=== PATIENT | male | born 1960 | race Caucasian/White ===

== ENCOUNTER 2024-08-03 06:57 | Inpatient (IN) | payer BC ==
[2024-07-25 14:09] LABS: BASOPHILS # (AUTO) 0.1 (0.0-0.1); EOSINOPHILS # (AUTO) 0.3 (0.0-0.4); EOSINOPHILS % 4.3 % (0.0-6.0); HEMATOCRIT 45.9 % (38.2-49.6); HEMOGLOBIN 14.9 g/dL (14.0-18.0); LYMPHOCYTES # (AUTO) 1.5 (1.0-3.2); LYMPHOCYTES % 23.7 % (18.0-39.1); MEAN CORPUSCULAR HEMOGLOBIN 29.9 pg (28-32); MEAN CORPUSCULAR HGB CONC 32.5 g/dL (31-35); MONOCYTES # (AUTO) 0.9 (0.2-0.8); NEUTROPHILS # (AUTO) 3.6 (2.1-6.9); NEUTROPHILS % 56.7 % (38.7-80.0); PLATELET COUNT 211 x10e3/uL (140-360); RED BLOOD COUNT 4.99 x10e6/uL (4.3-5.7); RED CELL DISTRIBUTION WIDTH 13.5 % (11.7-14.4); WHITE BLOOD COUNT 6.29 x10e3/uL (4.8-10.8)
[2024-07-25 14:42] LABS: ANION GAP 14.6 mmol/L (8-16); CALCIUM 9.3 mg/dL (8.4-10.2); CREATININE, SERUM 0.94 mg/dL (0.72-1.25); POTASSIUM 4.6 mmol/L (3.5-5.1)
[~2024-08-03] VITALS: Ht 177.8 cm; Wt 90.3 kg
[~2024-08-03 06:57] MED LIST: CARVEDILOL12.5 MG PO; LOSARTAN POTASS25 MG PO; REPATHA SY140 MG/1 M IM; ZETIA10 MG PO
[2024-08-03] MEDS: CEFAZOLIN SODIUM 2 GM ONE (07:28)
[2024-08-03] MEDS: LACTATED RINGER'S 1,000 ML ONE (07:28)
[2024-08-03] MEDS ORDERED: FENTANYL CITRATE/PF 100MCG/2 ML INJ ONE ×2 (08:25→09:52)
[2024-08-03] MEDS ORDERED: LIDOCAINE HCL 2% LOCAL INJ 5 ML SDV VIAL INJ ONE (08:25)
[2024-08-03] MEDS ORDERED: PROPOFOL IV EMULSION 10 MG/ML 20 ML VIAL ONE ×2 (08:25→10:16)
[2024-08-03] MEDS ORDERED: SODIUM CHLORIDE 0.9% 100 ML ONE (09:35)
[2024-08-03] MEDS ORDERED: ACETAMINOPHEN 1000 MG/100 ML 100 ML IV ONE (09:35)
[2024-08-03] MEDS ORDERED: DEXAMETHASONE SOD PHOS INJ 4 MG/ML SDV ONE (09:59)
[2024-08-03] MEDS ORDERED: ONDANSETRON HCL INJ 2MG/ML 2ML 2 MG/ML VIAL ONE (09:59)
[2024-08-03] MEDS ORDERED: SEVOFLURANE INHAL SOLN 250 ML PEN BTL ONE (10:00)
[2024-08-03] MEDS ORDERED: MIDAZOLAM HCL 2 MG/2 ML VIAL ONE (10:11)
[2024-08-03] MEDS: FENTANYL CITRATE/PF 100MCG/2 ML INJ ONE (11:01)
[2024-08-03 12:00] VITALS: BP 139/93; PULSE 77; RESP 17; TEMP 98.4; O2SAT 99
[2024-08-03] MEDS: Vancomycin IV 1 GM in SODIUM CHLORIDE 0.9% 250ML 250 ML IV SCH (14:32)
[2024-08-03] MEDS: HYDROCODONE/APAP 7.5MG-325MG 1 EA TAB PO PRN (14:33)
[2024-08-03 16:49] VITALS: BP 130/89; PULSE 84; RESP 18; TEMP 98; O2SAT 97
[2024-08-03 20:45] VITALS: BP 92/67; PULSE 106; RESP 18; TEMP 98.7; O2SAT 96
[2024-08-04] VITALS (8 sets, daily range): BP systolic 99–145; BP diastolic 65–91; PULSE 79–102; RESP 16–20; TEMP 97.5–98.3; O2SAT 95–100
[2024-08-04] MEDS: EZETIMIBE 10 MG TAB PO SCH (08:21)
[2024-08-04 09:15] LABS: BASOPHILS % 0.2 % (0.0-1.0); EOSINOPHILS % 0.1 % (0.0-6.0); HEMATOCRIT 47.6 % (38.2-49.6); HEMOGLOBIN 15.9 g/dL (14.0-18.0); LYMPHOCYTES # (AUTO) 1.3 (1.0-3.2); LYMPHOCYTES % 9.3 % (18.0-39.1); MEAN CORPUSCULAR HEMOGLOBIN 30.3 pg (28-32); MEAN CORPUSCULAR HGB CONC 33.4 g/dL (31-35); MEAN CORPUSCULAR VOLUME 90.7 fL (81-99); MONOCYTES # (AUTO) 1.2 (0.2-0.8); MONOCYTES % 8.2 % (4.4-11.3); NEUTROPHILS # (AUTO) 11.5 (2.1-6.9); NEUTROPHILS % 81.8 % (38.7-80.0); PLATELET COUNT 236 x10e3/uL (140-360); RED BLOOD COUNT 5.25 x10e6/uL (4.3-5.7); RED CELL DISTRIBUTION WIDTH 13.4 % (11.7-14.4); WHITE BLOOD COUNT 14.05 x10e3/uL (4.8-10.8)
[2024-08-04 10:04] LABS: ALBUMIN 3.8 g/dL (3.5-5.0); ALBUMIN/GLOBULIN RATIO 1.2 (0.8-2.0); ANION GAP 14.8 mmol/L (8-16); BILIRUBIN,TOTAL 0.9 mg/dL (0.2-1.2); CALCIUM 9.4 mg/dL (8.4-10.2); CREATININE, SERUM 1.01 mg/dL (0.72-1.25); MAGNESIUM 1.9 MG/DL (1.3-2.1); POTASSIUM 3.8 mmol/L (3.5-5.1); TOTAL PROTEIN 6.9 g/dL (6.5-8.1)
[2024-08-04] MEDS: DIPHENHYDRAMINE HCL 25 MG CAP PO PRN (18:23)
[2024-08-05 00:39] VITALS: BP 125/84; PULSE 67; RESP 17; TEMP 98.1; O2SAT 97
[2024-08-05 04:19] VITALS: BP 137/93; PULSE 70; RESP 17; TEMP 97.8; O2SAT 97
[2024-08-05 07:12] LABS: BASOPHILS # (AUTO) 0.1 (0.0-0.1); BASOPHILS % 0.8 % (0.0-1.0); EOSINOPHILS # (AUTO) 0.2 (0.0-0.4); HEMATOCRIT 45.4 % (38.2-49.6); HEMOGLOBIN 14.7 g/dL (14.0-18.0); LYMPHOCYTES # (AUTO) 1.9 (1.0-3.2); LYMPHOCYTES % 21.4 % (18.0-39.1); MEAN CORPUSCULAR HEMOGLOBIN 29.9 pg (28-32); MEAN CORPUSCULAR HGB CONC 32.4 g/dL (31-35); MEAN CORPUSCULAR VOLUME 92.3 fL (81-99); MONOCYTES # (AUTO) 0.9 (0.2-0.8); MONOCYTES % 9.6 % (4.4-11.3); NEUTROPHILS % 65.9 % (38.7-80.0); PLATELET COUNT 192 x10e3/uL (140-360); RED BLOOD COUNT 4.92 x10e6/uL (4.3-5.7); RED CELL DISTRIBUTION WIDTH 13.8 % (11.7-14.4); WHITE BLOOD COUNT 9.08 x10e3/uL (4.8-10.8)
[2024-08-05 07:27] LABS: ALBUMIN 3.4 g/dL (3.5-5.0); ALBUMIN/GLOBULIN RATIO 1.2 (0.8-2.0); BILIRUBIN,TOTAL 0.6 mg/dL (0.2-1.2); CALCIUM 8.9 mg/dL (8.4-10.2); CREATININE, SERUM 0.83 mg/dL (0.72-1.25); TOTAL PROTEIN 6.2 g/dL (6.5-8.1)
[2024-08-05 07:35] LABS: POTASSIUM 3.2 mmol/L (3.5-5.1)
[2024-08-05 07:46] LABS: ANION GAP 16.1 mmol/L (8-16)
[2024-08-05] MEDS: POTASSIUM CHLORIDE 20 MEQ TAB CR PO STA (09:01)
[2024-08-05 20:39] VITALS: BP 113/76; PULSE 81; RESP 20; TEMP 97.8; O2SAT 97
[2024-08-05 21:00] VITALS: BP 113/76; PULSE 81; RESP 20; TEMP 97.8; O2SAT 97
[2024-08-06] VITALS (9 sets, daily range): BP systolic 124–155; BP diastolic 79–107; PULSE 72–111; RESP 16–20; TEMP 97.6–98.6; O2SAT 98–100
[2024-08-06] MEDS: CEFTRIAXONE 2 GM in SODIUM CHLORIDE 0.9% 100 ML IV SCH (09:37)
[2024-08-06] MEDS: DAPTOMYCIN 500mg 10ML 500 MG in SODIUM CHLORIDE 0.9% 100 ML IV SCH (13:29)
[2024-08-07] VITALS: BP 118/81; PULSE 99; RESP 19; TEMP 98.4; O2SAT 95
[2024-08-07 04:00] VITALS: BP 133/96; PULSE 80; RESP 20; TEMP 97.7; O2SAT 98
[2024-08-07 08:00] VITALS: BP 165/110; PULSE 87; RESP 18; TEMP 98; O2SAT 100
[2024-08-07] MEDS: HYDRALAZINE HCL 20 MG/ML VIAL IV ONE (09:32)
[2024-08-07 11:10] VITALS: BP 165/110; PULSE 87; RESP 18; TEMP 98; O2SAT 100
[2024-08-07 12:08] VITALS: BP 142/90; PULSE 110; RESP 18; TEMP 98.6; O2SAT 100
== END 2024-08-07 15:10 | disposition home health service (06) | DRG 478 ==
LOC: OR 06:57 → PACU V 10:56 → MED/SURG3 12:04
PROVIDERS: ADMIT Internal Medicine; ATTEND Internal Medicine
PROC: 0QBQ0ZX Excision of Right Toe Phalanx, Open Approach, Diagnostic (ICD-10-PCS; 2024-08-03)
PROC: 3E04329 Introduction of Other Anti-infective into Central Vein, Percutaneous Approach (ICD-10-PCS; 2024-08-03)
PROC: 0QBQ0ZZ Excision of Right Toe Phalanx, Open Approach (ICD-10-PCS; principal; 2024-08-03 09:30)
PROC: 02HV33Z Insertion of Infusion Device into Superior Vena Cava, Percutaneous Approach (ICD-10-PCS; 2024-08-06)
PROC: B548ZZA Ultrasonography of Superior Vena Cava, Guidance (ICD-10-PCS; 2024-08-06)
DX: M86.671 Other chronic osteomyelitis, right ankle and foot (principal); L02.611 Cutaneous abscess of right foot; L97.516 Non-pressure chronic ulcer of other part of right foot with bone involvement without evidence of necrosis; L03.031 Cellulitis of right toe; M19.072 Primary osteoarthritis, left ankle and foot; I10 Essential (primary) hypertension; E78.5 Hyperlipidemia, unspecified; I25.10 Atherosclerotic heart disease of native coronary artery without angina pectoris; Z95.5 Presence of coronary angioplasty implant and graft; I25.2 Old myocardial infarction; G47.33 Obstructive sleep apnea (adult) (pediatric); Z96.641 Presence of right artificial hip joint; Z79.899 Other long term (current) drug therapy
CPT/HCPCS: 36415; 36569; 71045; 71046; 80048; 80053; 80202; 83735; 85025; 87071; 87075; 87205; 88304; 88311; 93005; 93925; 99252; J0360; J0696; J1100; J2003; J2250; J2405; J2543; J7050

== ENCOUNTER → 2024-08-08 | Outpatient (REF) | payer BC | LOC: WCC 13:00 | PROVIDERS: ATTEND Nurse Practitioner Family | DX: L97.516 Non-pressure chronic ulcer of other part of right foot with bone involvement without evidence of necrosis (principal); M86.171 Other acute osteomyelitis, right ankle and foot | CPT/HCPCS: 83036 ==

== ENCOUNTER → 2024-08-10 | Outpatient (REF) | payer BC | LOC: WCC 11:25 | PROVIDERS: ATTEND Nurse Practitioner Family | DX: L97.516 Non-pressure chronic ulcer of other part of right foot with bone involvement without evidence of necrosis (principal) ==

== ENCOUNTER → 2024-08-13 | Outpatient (REF) | payer BC | LOC: WCC 13:02 | PROVIDERS: ATTEND Nurse Practitioner Family | DX: L97.516 Non-pressure chronic ulcer of other part of right foot with bone involvement without evidence of necrosis (principal); M86.171 Other acute osteomyelitis, right ankle and foot ==

== ENCOUNTER → 2024-08-15 | Outpatient (REF) | payer BC | LOC: WCC 10:50 | PROVIDERS: ATTEND Nurse Practitioner Family | DX: L97.516 Non-pressure chronic ulcer of other part of right foot with bone involvement without evidence of necrosis (principal) ==

== ENCOUNTER → 2024-08-17 | Outpatient (REF) | payer BC | LOC: WCC 10:16 | PROVIDERS: ATTEND Internal Medicine Infectious Disease | DX: L97.516 Non-pressure chronic ulcer of other part of right foot with bone involvement without evidence of necrosis (principal) ==

== ENCOUNTER → 2024-08-20 | Outpatient (REF) | payer BC | LOC: CT 16:15 | PROVIDERS: ATTEND Nurse Practitioner Family | DX: L97.516 Non-pressure chronic ulcer of other part of right foot with bone involvement without evidence of necrosis (principal); M86.171 Other acute osteomyelitis, right ankle and foot ==

== ENCOUNTER → 2024-08-20 | Outpatient (REF) | payer BC | LOC: WCC 15:29 | PROVIDERS: ATTEND Nurse Practitioner Family | DX: L97.516 Non-pressure chronic ulcer of other part of right foot with bone involvement without evidence of necrosis (principal); M86.171 Other acute osteomyelitis, right ankle and foot ==

== ENCOUNTER → 2024-08-22 | Outpatient (REF) | payer BC | LOC: WCC 11:52 | PROVIDERS: ATTEND Nurse Practitioner Family | DX: L97.516 Non-pressure chronic ulcer of other part of right foot with bone involvement without evidence of necrosis (principal); M86.171 Other acute osteomyelitis, right ankle and foot ==

== ENCOUNTER → 2024-08-24 | Outpatient (REF) | payer BC | LOC: WCC 10:13 | PROVIDERS: ATTEND Nurse Practitioner Family | DX: L97.514 Non-pressure chronic ulcer of other part of right foot with necrosis of bone (principal) ==

== ENCOUNTER → 2024-08-27 | Outpatient (REF) | payer BC | LOC: WCC 10:00 | PROVIDERS: ATTEND Internal Medicine Infectious Disease | DX: L97.514 Non-pressure chronic ulcer of other part of right foot with necrosis of bone (principal) ==

== ENCOUNTER → 2024-08-29 | Outpatient (REF) | payer BC ==
[~2024-08-29] MED LIST changes: +ALLEGRA ALLERGY60 MG PO; +B-121000 MC2; +COQ-10100 MG; +JUVEN PACKET1 EACH; +MULTI-VITAMIN1 EACH PO; +PREVAGEN; +ZINC30 M1
== END ==
LOC: WCC 11:50
PROVIDERS: ATTEND Internal Medicine Infectious Disease
DX: L97.514 Non-pressure chronic ulcer of other part of right foot with necrosis of bone (principal); M86.671 Other chronic osteomyelitis, right ankle and foot

== ENCOUNTER → 2024-08-31 | Outpatient (REF) | payer BC ==
[~2024-08-31] MED LIST changes: -ALLEGRA ALLERGY60 MG PO; -B-121000 MC2; -COQ-10100 MG; -JUVEN PACKET1 EACH; -MULTI-VITAMIN1 EACH PO; -PREVAGEN; -ZINC30 M1
== END ==
LOC: WCC 09:51
PROVIDERS: ATTEND Internal Medicine Infectious Disease
DX: L97.514 Non-pressure chronic ulcer of other part of right foot with necrosis of bone (principal)

== ENCOUNTER → 2024-09-03 | Outpatient (REF) | payer BC | LOC: WCC 11:10 | PROVIDERS: ATTEND Internal Medicine Infectious Disease | DX: L97.514 Non-pressure chronic ulcer of other part of right foot with necrosis of bone (principal) ==

== ENCOUNTER → 2024-09-05 | Outpatient (REF) | payer BC | LOC: WCC 11:02 | PROVIDERS: ATTEND Internal Medicine Infectious Disease | DX: L97.514 Non-pressure chronic ulcer of other part of right foot with necrosis of bone (principal) ==

== ENCOUNTER → 2024-09-07 | Outpatient (REF) | payer BC | LOC: WCC 09:16 | PROVIDERS: ATTEND Internal Medicine Infectious Disease | DX: L97.514 Non-pressure chronic ulcer of other part of right foot with necrosis of bone (principal) ==

== ENCOUNTER → 2024-09-10 | Outpatient (REF) | payer BC ==
[~2024-09-10] MED LIST changes: +ALLEGRA ALLERGY60 MG PO; +B-121000 MC2; +COQ-10100 MG; +JUVEN PACKET1 EACH; +MULTI-VITAMIN1 EACH PO; +PREVAGEN; +ZINC30 M1
== END ==
LOC: WCC 08:14
PROVIDERS: ATTEND Internal Medicine Infectious Disease
DX: L97.514 Non-pressure chronic ulcer of other part of right foot with necrosis of bone (principal)

== ENCOUNTER → 2024-09-14 | Day surgery (SDC) | payer BC ==
[2024-09-13 08:43] LABS: BASOPHILS # (AUTO) 0.1 (0.0-0.1); BASOPHILS % 0.7 % (0.0-1.0); EOSINOPHILS # (AUTO) 0.1 (0.0-0.4); EOSINOPHILS % 1.9 % (0.0-6.0); HEMATOCRIT 47.1 % (38.2-49.6); HEMOGLOBIN 15.8 g/dL (14.0-18.0); LYMPHOCYTES # (AUTO) 1.4 (1.0-3.2); LYMPHOCYTES % 20.6 % (18.0-39.1); MEAN CORPUSCULAR HEMOGLOBIN 29.5 pg (28-32); MEAN CORPUSCULAR HGB CONC 33.5 g/dL (31-35); MEAN CORPUSCULAR VOLUME 87.9 fL (81-99); MONOCYTES # (AUTO) 0.8 (0.2-0.8); MONOCYTES % 12.1 % (4.4-11.3); NEUTROPHILS # (AUTO) 4.3 (2.1-6.9); NEUTROPHILS % 64.3 % (38.7-80.0); PLATELET COUNT 208 x10e3/uL (140-360); RED BLOOD COUNT 5.36 x10e6/uL (4.3-5.7); RED CELL DISTRIBUTION WIDTH 14.3 % (11.7-14.4); WHITE BLOOD COUNT 6.76 x10e3/uL (4.8-10.8)
[~2024-09-14] MED LIST changes: +ACETAMINOPHEN 1000 MG/100 ML 100 ML IV ONE; +DEXAMETHASONE SOD PHOS INJ 4 MG/ML SDV ONE; +FENTANYL CITRATE/PF 100MCG/2 ML INJ ONE; +LIDOCAINE HCL 2% LOCAL INJ 5 ML SDV VIAL INJ ONE; +MIDAZOLAM HCL 2 MG/2 ML VIAL ONE; +ONDANSETRON HCL INJ 2MG/ML 2ML 2 MG/ML VIAL ONE; +PHENYLEPHRINE HCL 1% 10 MG/ML VIAL ONE; +PROPOFOL IV EMULSION 10 MG/ML 20 ML VIAL ONE; +SEVOFLURANE INHAL SOLN 250 ML PEN BTL ONE
[2024-09-14] MEDS: FENTANYL CITRATE/PF 100MCG/2 ML INJ ONE (15:45)
[2024-09-14 16:20] VITALS: TEMP 97.7
[2024-09-14] MEDS: HYDROCODONE/APAP 7.5MG-325MG 1 EA TAB ONE (16:27)
[2024-09-14 16:55] VITALS: BP 164/90; PULSE 77; RESP 16; O2SAT 96
== END | disposition home or self-care (01) ==
LOC: OR 12:00
PROVIDERS: ATTEND Podiatrist Foot Surgery
DX: S91.101A Unspecified open wound of right great toe without damage to nail, initial encounter (principal); M86.171 Other acute osteomyelitis, right ankle and foot; G47.33 Obstructive sleep apnea (adult) (pediatric); I25.810 Atherosclerosis of coronary artery bypass graft(s) without angina pectoris; I50.9 Heart failure, unspecified; I25.2 Old myocardial infarction; E78.5 Hyperlipidemia, unspecified; X58.XXXA Exposure to other specified factors, initial encounter; Z79.899 Other long term (current) drug therapy; Z95.1 Presence of aortocoronary bypass graft; Z95.5 Presence of coronary angioplasty implant and graft
CPT/HCPCS: 15275; 28899; 36415; 76000; 85025; 87071; 87075; 87186; 87205; 88307; 88311; C1713; J0131; J0690; J1100; J2003; J2250; J2371; J2405; J2704; J3010; Q4104; 88304

== ENCOUNTER → 2024-09-19 | Outpatient (REF) | payer BC ==
[~2024-09-19] MED LIST changes: -ACETAMINOPHEN 1000 MG/100 ML 100 ML IV ONE; -DEXAMETHASONE SOD PHOS INJ 4 MG/ML SDV ONE; -FENTANYL CITRATE/PF 100MCG/2 ML INJ ONE; -LIDOCAINE HCL 2% LOCAL INJ 5 ML SDV VIAL INJ ONE; -MIDAZOLAM HCL 2 MG/2 ML VIAL ONE; -ONDANSETRON HCL INJ 2MG/ML 2ML 2 MG/ML VIAL ONE; -PHENYLEPHRINE HCL 1% 10 MG/ML VIAL ONE; -PROPOFOL IV EMULSION 10 MG/ML 20 ML VIAL ONE; -SEVOFLURANE INHAL SOLN 250 ML PEN BTL ONE
== END ==
LOC: RAD 12:26
PROVIDERS: ATTEND Nurse Practitioner Family
DX: M86.671 Other chronic osteomyelitis, right ankle and foot (principal)
CPT/HCPCS: 71046; 93005

== ENCOUNTER → 2024-09-21 | Outpatient (REF) | payer BC | LOC: WCC 12:24 | PROVIDERS: ATTEND Nurse Practitioner Family | DX: L97.514 Non-pressure chronic ulcer of other part of right foot with necrosis of bone (principal); M86.671 Other chronic osteomyelitis, right ankle and foot ==

== ENCOUNTER → 2024-09-24 | Outpatient (REF) | payer BC | LOC: WCC 08:18 | PROVIDERS: ATTEND Plastic Surgery | DX: L97.514 Non-pressure chronic ulcer of other part of right foot with necrosis of bone (principal); M86.671 Other chronic osteomyelitis, right ankle and foot | CPT/HCPCS: 99212; G0277 ==

== ENCOUNTER → 2024-09-25 | Outpatient (REF) | payer BC | LOC: WCC 10:02 | PROVIDERS: ATTEND Nurse Practitioner Family | DX: L97.514 Non-pressure chronic ulcer of other part of right foot with necrosis of bone (principal); M86.671 Other chronic osteomyelitis, right ankle and foot; I10 Essential (primary) hypertension; E78.5 Hyperlipidemia, unspecified ==

== ENCOUNTER → 2024-09-27 | Outpatient (REF) | payer BC | LOC: WCC 12:30 | PROVIDERS: ATTEND Nurse Practitioner Family | DX: L97.514 Non-pressure chronic ulcer of other part of right foot with necrosis of bone (principal); M86.671 Other chronic osteomyelitis, right ankle and foot | CPT/HCPCS: 97605; 99212; G0277 ==

== ENCOUNTER → 2024-09-28 | Outpatient (REF) | payer BC | LOC: WCC 09:36 | PROVIDERS: ATTEND Nurse Practitioner Family | DX: L97.514 Non-pressure chronic ulcer of other part of right foot with necrosis of bone (principal); M86.671 Other chronic osteomyelitis, right ankle and foot ==

== ENCOUNTER → 2024-10-01 | Outpatient (REF) | payer BC | LOC: WCC 08:28 | PROVIDERS: ATTEND Nurse Practitioner Family | DX: L97.514 Non-pressure chronic ulcer of other part of right foot with necrosis of bone (principal); M86.671 Other chronic osteomyelitis, right ankle and foot | CPT/HCPCS: 99213; G0277 ==

== ENCOUNTER → 2024-10-02 | Outpatient (REF) | payer BC | LOC: WCC 10:30 | PROVIDERS: ATTEND Nurse Practitioner Family | DX: L97.514 Non-pressure chronic ulcer of other part of right foot with necrosis of bone (principal); M86.671 Other chronic osteomyelitis, right ankle and foot | CPT/HCPCS: 99213; G0277 ==

== ENCOUNTER → 2024-10-03 | Outpatient (REF) | payer BC | LOC: WCC 13:43 | PROVIDERS: ATTEND Internal Medicine Infectious Disease | DX: L97.514 Non-pressure chronic ulcer of other part of right foot with necrosis of bone (principal); M86.671 Other chronic osteomyelitis, right ankle and foot | CPT/HCPCS: 97605; 99212; G0277 ==

== ENCOUNTER → 2024-10-04 | Outpatient (REF) | payer BC | LOC: WCC 10:29 | PROVIDERS: ATTEND Internal Medicine Infectious Disease | DX: L97.514 Non-pressure chronic ulcer of other part of right foot with necrosis of bone (principal); M86.671 Other chronic osteomyelitis, right ankle and foot ==

== ENCOUNTER → 2024-10-05 | Outpatient (REF) | payer BC | LOC: WCC 11:30 | PROVIDERS: ATTEND Nurse Practitioner Family | DX: L97.514 Non-pressure chronic ulcer of other part of right foot with necrosis of bone (principal); M86.671 Other chronic osteomyelitis, right ankle and foot | CPT/HCPCS: 97605; 99212; G0277 ==

== ENCOUNTER → 2024-10-08 | Outpatient (REF) | payer BC ==
[~2024-10-08] MED LIST changes: +MINERAL OIL/PETROLAT/GLYCERI 6OZ BTL ONE
== END ==
LOC: WCC 11:12
PROVIDERS: ATTEND Nurse Practitioner Family
DX: L97.514 Non-pressure chronic ulcer of other part of right foot with necrosis of bone (principal); M86.671 Other chronic osteomyelitis, right ankle and foot
CPT/HCPCS: 97605; 99212; G0277

== ENCOUNTER → 2024-10-09 | Outpatient (REF) | payer BC ==
[~2024-10-09] MED LIST changes: -MINERAL OIL/PETROLAT/GLYCERI 6OZ BTL ONE
== END ==
LOC: WCC 10:21
PROVIDERS: ATTEND Nurse Practitioner Family
DX: L97.514 Non-pressure chronic ulcer of other part of right foot with necrosis of bone (principal); M86.671 Other chronic osteomyelitis, right ankle and foot

== ENCOUNTER → 2024-10-10 | Outpatient (REF) | payer BC | LOC: WCC 11:39 | PROVIDERS: ATTEND Nurse Practitioner Family | DX: L97.514 Non-pressure chronic ulcer of other part of right foot with necrosis of bone (principal); M86.671 Other chronic osteomyelitis, right ankle and foot ==

== ENCOUNTER → 2024-10-11 | Outpatient (REF) | payer BC | LOC: WCC 14:15 | PROVIDERS: ATTEND Nurse Practitioner Family | DX: L97.514 Non-pressure chronic ulcer of other part of right foot with necrosis of bone (principal); M86.671 Other chronic osteomyelitis, right ankle and foot | CPT/HCPCS: 97605; 99212; G0277 ==

== ENCOUNTER → 2024-10-12 | Outpatient (REF) | payer BC | LOC: WCC 11:28 | PROVIDERS: ATTEND Nurse Practitioner Family | DX: L97.514 Non-pressure chronic ulcer of other part of right foot with necrosis of bone (principal); M86.671 Other chronic osteomyelitis, right ankle and foot ==

== ENCOUNTER → 2024-10-15 | Outpatient (REF) | payer BC | LOC: WCC 12:49 | PROVIDERS: ATTEND Nurse Practitioner Family | DX: L97.514 Non-pressure chronic ulcer of other part of right foot with necrosis of bone (principal); M86.671 Other chronic osteomyelitis, right ankle and foot | CPT/HCPCS: 97605; 99212; G0277 ==

== ENCOUNTER → 2024-10-16 | Outpatient (REF) | payer BC | LOC: WCC 12:27 | PROVIDERS: ATTEND Nurse Practitioner Family | DX: L97.514 Non-pressure chronic ulcer of other part of right foot with necrosis of bone (principal); M86.671 Other chronic osteomyelitis, right ankle and foot ==

== ENCOUNTER → 2024-10-17 | Outpatient (REF) | payer BC | LOC: WCC 11:23 | PROVIDERS: ATTEND Nurse Practitioner Family | DX: L97.514 Non-pressure chronic ulcer of other part of right foot with necrosis of bone (principal); M86.671 Other chronic osteomyelitis, right ankle and foot | CPT/HCPCS: 97605; 99212; G0277 ==

== ENCOUNTER → 2024-10-18 | Outpatient (REF) | payer BC | LOC: WCC 10:34 | PROVIDERS: ATTEND Nurse Practitioner Family | DX: L97.514 Non-pressure chronic ulcer of other part of right foot with necrosis of bone (principal); M86.671 Other chronic osteomyelitis, right ankle and foot | CPT/HCPCS: 99212; G0277 ==

== ENCOUNTER → 2024-10-19 | Outpatient (REF) | payer BC | LOC: WCC 14:32 | PROVIDERS: ATTEND Nurse Practitioner Family | DX: L97.514 Non-pressure chronic ulcer of other part of right foot with necrosis of bone (principal) ==

== ENCOUNTER → 2024-10-22 | Outpatient (REF) | payer BC | LOC: WCC 08:27 | PROVIDERS: ATTEND Nurse Practitioner Family | DX: L97.514 Non-pressure chronic ulcer of other part of right foot with necrosis of bone (principal); M86.671 Other chronic osteomyelitis, right ankle and foot | CPT/HCPCS: 97605; 99212; G0277 ==

== ENCOUNTER → 2024-10-23 | Outpatient (REF) | payer BC | LOC: WCC 10:52 | PROVIDERS: ATTEND Nurse Practitioner Family | DX: L97.514 Non-pressure chronic ulcer of other part of right foot with necrosis of bone (principal); M86.671 Other chronic osteomyelitis, right ankle and foot ==

== ENCOUNTER → 2024-10-24 | Outpatient (REF) | payer BC | LOC: WCC 10:39 | PROVIDERS: ATTEND Nurse Practitioner Family | DX: L97.514 Non-pressure chronic ulcer of other part of right foot with necrosis of bone (principal); M86.671 Other chronic osteomyelitis, right ankle and foot ==

== ENCOUNTER → 2024-10-25 | Outpatient (REF) | payer BC | LOC: WCC 10:29 | PROVIDERS: ATTEND Nurse Practitioner Family | DX: L97.514 Non-pressure chronic ulcer of other part of right foot with necrosis of bone (principal); M86.671 Other chronic osteomyelitis, right ankle and foot | CPT/HCPCS: 97605; 99212; G0277 ==

== ENCOUNTER → 2024-10-26 | Outpatient (REF) | payer BC | LOC: WCC 10:42 | PROVIDERS: ATTEND Nurse Practitioner Family | DX: L97.514 Non-pressure chronic ulcer of other part of right foot with necrosis of bone (principal); M86.671 Other chronic osteomyelitis, right ankle and foot ==

== ENCOUNTER → 2024-10-29 | Outpatient (REF) | payer BC | LOC: WCC 11:22 | PROVIDERS: ATTEND Nurse Practitioner Family | DX: L97.514 Non-pressure chronic ulcer of other part of right foot with necrosis of bone (principal); M86.671 Other chronic osteomyelitis, right ankle and foot | CPT/HCPCS: 97605; 99212; G0277 ==

== ENCOUNTER → 2024-10-30 | Outpatient (REF) | payer BC | LOC: WCC 10:03 | PROVIDERS: ATTEND Nurse Practitioner Family | DX: L97.514 Non-pressure chronic ulcer of other part of right foot with necrosis of bone (principal); M86.671 Other chronic osteomyelitis, right ankle and foot ==

== ENCOUNTER → 2024-10-31 | Outpatient (REF) | payer BC | LOC: WCC 10:49 | PROVIDERS: ATTEND Nurse Practitioner Family | DX: L97.514 Non-pressure chronic ulcer of other part of right foot with necrosis of bone (principal); M86.671 Other chronic osteomyelitis, right ankle and foot | CPT/HCPCS: 97605; 99212; G0277 ==

== ENCOUNTER → 2024-11-09 | Day surgery (SDC) | payer BC ==
[~2024-11-09] MED LIST changes: +CIPRO500 MG PO; +DOXYCYCLINE HY100 MG PO; +FENTANYL CITRATE/PF 100MCG/2 ML INJ ONE; +GLYCOPYRROLATE INJ 0.2 MG/ML VIAL ONE; +LIDOCAINE HCL 2% LOCAL INJ 5 ML SDV VIAL INJ ONE; +MIDAZOLAM HCL 2 MG/2 ML VIAL ONE; +ONDANSETRON HCL INJ 2MG/ML 2ML 2 MG/ML VIAL ONE; +PROPOFOL IV EMULSION 10 MG/ML 20 ML VIAL ONE
[2024-11-09 06:54] LABS: BASOPHILS # (AUTO) 0.1 (0.0-0.1); BASOPHILS % 0.7 % (0.0-1.0); EOSINOPHILS # (AUTO) 0.2 (0.0-0.4); EOSINOPHILS % 1.8 % (0.0-6.0); LYMPHOCYTES # (AUTO) 1.5 (1.0-3.2); LYMPHOCYTES % 18.5 % (18.0-39.1); MEAN CORPUSCULAR HEMOGLOBIN 29.9 pg (28-32); MEAN CORPUSCULAR HGB CONC 34.1 g/dL (31-35); MEAN CORPUSCULAR VOLUME 87.6 fL (81-99); MONOCYTES # (AUTO) 1.1 (0.2-0.8); MONOCYTES % 13.8 % (4.4-11.3); NEUTROPHILS # (AUTO) 5.3 (2.1-6.9); NEUTROPHILS % 64.7 % (38.7-80.0); PLATELET COUNT 201 x10e3/uL (140-360); RED BLOOD COUNT 4.68 x10e6/uL (4.3-5.7); RED CELL DISTRIBUTION WIDTH 14.5 % (11.7-14.4); WHITE BLOOD COUNT 8.21 x10e3/uL (4.8-10.8)
[2024-11-09] MEDS: LACTATED RINGER'S 1,000 ML ONE (06:54)
[2024-11-09 09:42] VITALS: TEMP 97.6
[2024-11-09] MEDS: MEPERIDINE HCL INJ 25 MG/ML VIAL ONE (10:28)
[2024-11-09 10:35] VITALS: BP 138/99; PULSE 85; RESP 16; O2SAT 100
== END | disposition home or self-care (01) ==
LOC: OR 06:03
PROVIDERS: ATTEND Podiatrist Foot Surgery
DX: S91.301A Unspecified open wound, right foot, initial encounter (principal); I25.10 Atherosclerotic heart disease of native coronary artery without angina pectoris; I10 Essential (primary) hypertension; E78.5 Hyperlipidemia, unspecified; E66.01 Morbid (severe) obesity due to excess calories; X58.XXXA Exposure to other specified factors, initial encounter; Z79.899 Other long term (current) drug therapy; Z95.5 Presence of coronary angioplasty implant and graft
CPT/HCPCS: 15004; 15275; 36415; 85025; 87071; 87075; 87186; 87205; J2003; J2175; J2250; J2405; J2704; J3010; J7121; Q4152

== ENCOUNTER → 2024-11-19 | Outpatient (REF) | payer BC ==
[~2024-11-19] MED LIST changes: -FENTANYL CITRATE/PF 100MCG/2 ML INJ ONE; -GLYCOPYRROLATE INJ 0.2 MG/ML VIAL ONE; -LIDOCAINE HCL 2% LOCAL INJ 5 ML SDV VIAL INJ ONE; -MIDAZOLAM HCL 2 MG/2 ML VIAL ONE; -ONDANSETRON HCL INJ 2MG/ML 2ML 2 MG/ML VIAL ONE; -PROPOFOL IV EMULSION 10 MG/ML 20 ML VIAL ONE
== END ==
LOC: WCC 10:58
PROVIDERS: ATTEND Nurse Practitioner Family
DX: L97.514 Non-pressure chronic ulcer of other part of right foot with necrosis of bone (principal); M86.671 Other chronic osteomyelitis, right ankle and foot
CPT/HCPCS: 97605; 99212; G0277

== ENCOUNTER → 2024-11-20 | Outpatient (REF) | payer BC | LOC: WCC 09:11 | PROVIDERS: ATTEND Nurse Practitioner Family | DX: L97.514 Non-pressure chronic ulcer of other part of right foot with necrosis of bone (principal); M86.671 Other chronic osteomyelitis, right ankle and foot ==

== ENCOUNTER → 2024-11-21 | Outpatient (REF) | payer BC | LOC: WCC 08:50 | PROVIDERS: ATTEND Plastic Surgery | DX: L97.514 Non-pressure chronic ulcer of other part of right foot with necrosis of bone (principal); M86.671 Other chronic osteomyelitis, right ankle and foot | CPT/HCPCS: 97605; 99212; G0277 ==

== ENCOUNTER → 2024-11-22 | Outpatient (REF) | payer BC | LOC: WCC 09:42 | PROVIDERS: ATTEND Nurse Practitioner Family | DX: L97.514 Non-pressure chronic ulcer of other part of right foot with necrosis of bone (principal); M86.671 Other chronic osteomyelitis, right ankle and foot ==

== ENCOUNTER → 2024-11-23 | Outpatient (REF) | payer BC | LOC: WCC 09:46 | PROVIDERS: ATTEND Nurse Practitioner Family | DX: L97.514 Non-pressure chronic ulcer of other part of right foot with necrosis of bone (principal); M86.671 Other chronic osteomyelitis, right ankle and foot; I10 Essential (primary) hypertension; E78.5 Hyperlipidemia, unspecified ==

== ENCOUNTER → 2024-11-26 | Outpatient (REF) | payer BC | LOC: WCC 09:54 | PROVIDERS: ATTEND Nurse Practitioner Family | DX: L97.514 Non-pressure chronic ulcer of other part of right foot with necrosis of bone (principal); M86.671 Other chronic osteomyelitis, right ankle and foot | CPT/HCPCS: 97605; 99212; G0277 ==

== ENCOUNTER → 2024-11-28 | Outpatient (REF) | payer BC | LOC: WCC 11:34 | PROVIDERS: ATTEND Internal Medicine Infectious Disease | DX: L97.514 Non-pressure chronic ulcer of other part of right foot with necrosis of bone (principal); M86.671 Other chronic osteomyelitis, right ankle and foot ==

== ENCOUNTER → 2024-11-29 | Outpatient (REF) | payer BC | LOC: WCC 10:32 | PROVIDERS: ATTEND Nurse Practitioner Family | DX: L97.514 Non-pressure chronic ulcer of other part of right foot with necrosis of bone (principal); M86.671 Other chronic osteomyelitis, right ankle and foot ==

== ENCOUNTER → 2024-11-30 | Outpatient (REF) | payer BC | LOC: WCC 11:42 | PROVIDERS: ATTEND Nurse Practitioner Family | DX: L97.514 Non-pressure chronic ulcer of other part of right foot with necrosis of bone (principal) | CPT/HCPCS: 99212; G0277 ==

== ENCOUNTER → 2024-12-03 | Outpatient (REF) | payer BC | LOC: WCC 08:27 | PROVIDERS: ATTEND Nurse Practitioner Family | DX: L97.514 Non-pressure chronic ulcer of other part of right foot with necrosis of bone (principal); M86.671 Other chronic osteomyelitis, right ankle and foot | CPT/HCPCS: 99212; G0277 ==

== ENCOUNTER → 2024-12-04 | Outpatient (REF) | payer BC | LOC: WCC 10:07 | PROVIDERS: ATTEND Nurse Practitioner Family | DX: L97.514 Non-pressure chronic ulcer of other part of right foot with necrosis of bone (principal); M86.671 Other chronic osteomyelitis, right ankle and foot ==

== ENCOUNTER → 2024-12-06 | Outpatient (REF) | payer BC | LOC: WCC 10:46 | PROVIDERS: ATTEND Nurse Practitioner Family | DX: L97.514 Non-pressure chronic ulcer of other part of right foot with necrosis of bone (principal); M86.671 Other chronic osteomyelitis, right ankle and foot ==

== ENCOUNTER → 2024-12-07 | Outpatient (REF) | payer BC | LOC: WCC 12:14 | PROVIDERS: ATTEND Nurse Practitioner Family | DX: L97.514 Non-pressure chronic ulcer of other part of right foot with necrosis of bone (principal); M86.671 Other chronic osteomyelitis, right ankle and foot | CPT/HCPCS: 99213; G0277 ==

== ENCOUNTER → 2024-12-10 | Outpatient (REF) | payer BC | LOC: WCC 08:00 | PROVIDERS: ATTEND Nurse Practitioner Family | DX: L97.514 Non-pressure chronic ulcer of other part of right foot with necrosis of bone (principal); M86.671 Other chronic osteomyelitis, right ankle and foot | CPT/HCPCS: 99212; G0277 ==

== ENCOUNTER → 2024-12-11 | Outpatient (REF) | payer BC | LOC: WCC 14:08 | PROVIDERS: ATTEND Nurse Practitioner Family | DX: L97.514 Non-pressure chronic ulcer of other part of right foot with necrosis of bone (principal); M86.671 Other chronic osteomyelitis, right ankle and foot ==

== ENCOUNTER → 2024-12-12 | Outpatient (REF) | payer BC | LOC: WCC 13:36 | PROVIDERS: ATTEND Nurse Practitioner Family | DX: L97.514 Non-pressure chronic ulcer of other part of right foot with necrosis of bone (principal); M86.671 Other chronic osteomyelitis, right ankle and foot | CPT/HCPCS: 99213; G0277 ==

== ENCOUNTER → 2024-12-13 | Outpatient (REF) | payer BC | LOC: WCC 15:20 | PROVIDERS: ATTEND Nurse Practitioner Family | DX: L97.514 Non-pressure chronic ulcer of other part of right foot with necrosis of bone (principal); M86.671 Other chronic osteomyelitis, right ankle and foot ==

== ENCOUNTER → 2024-12-18 | Outpatient (CLI) | payer BC | LOC: WCC 09:08 | PROVIDERS: ATTEND Nurse Practitioner Family | DX: L97.514 Non-pressure chronic ulcer of other part of right foot with necrosis of bone (principal); M86.671 Other chronic osteomyelitis, right ankle and foot ==

== ENCOUNTER → 2024-12-18 | Outpatient (REF) | payer BC | LOC: WCC 08:00 | PROVIDERS: ATTEND Nurse Practitioner Family | DX: L97.514 Non-pressure chronic ulcer of other part of right foot with necrosis of bone (principal); M86.671 Other chronic osteomyelitis, right ankle and foot ==

== ENCOUNTER → 2024-12-19 | Outpatient (REF) | payer BC | LOC: WCC 11:59 | PROVIDERS: ATTEND Nurse Practitioner Family | DX: L97.514 Non-pressure chronic ulcer of other part of right foot with necrosis of bone (principal); M86.671 Other chronic osteomyelitis, right ankle and foot | CPT/HCPCS: 99213; G0277 ==

== ENCOUNTER → 2024-12-20 | Outpatient (REF) | payer BC | LOC: WCC 11:57 | PROVIDERS: ATTEND Nurse Practitioner Family | DX: L97.514 Non-pressure chronic ulcer of other part of right foot with necrosis of bone (principal); M86.671 Other chronic osteomyelitis, right ankle and foot ==

== ENCOUNTER → 2024-12-21 | Outpatient (REF) | payer BC | LOC: WCC 09:37 | PROVIDERS: ATTEND Nurse Practitioner Family | DX: L97.514 Non-pressure chronic ulcer of other part of right foot with necrosis of bone (principal); M86.671 Other chronic osteomyelitis, right ankle and foot | CPT/HCPCS: 99213; G0277 ==

== ENCOUNTER → 2024-12-24 | Outpatient (REF) | payer BC | LOC: WCC 09:22 | PROVIDERS: ATTEND Nurse Practitioner Family | DX: L97.514 Non-pressure chronic ulcer of other part of right foot with necrosis of bone (principal); M86.671 Other chronic osteomyelitis, right ankle and foot | CPT/HCPCS: 99212; G0277 ==

== ENCOUNTER → 2024-12-25 | Outpatient (REF) | payer BC | LOC: WCC 13:00 | PROVIDERS: ATTEND Nurse Practitioner Family | DX: L97.514 Non-pressure chronic ulcer of other part of right foot with necrosis of bone (principal); M86.671 Other chronic osteomyelitis, right ankle and foot ==

== ENCOUNTER → 2024-12-26 | Outpatient (REF) | payer BC | LOC: WCC 12:41 | PROVIDERS: ATTEND Nurse Practitioner Family | DX: L97.514 Non-pressure chronic ulcer of other part of right foot with necrosis of bone (principal) | CPT/HCPCS: 99213; G0277 ==

== ENCOUNTER → 2024-12-27 | Outpatient (REF) | payer BC | LOC: WCC 14:59 | PROVIDERS: ATTEND Nurse Practitioner Family | DX: L97.514 Non-pressure chronic ulcer of other part of right foot with necrosis of bone (principal); M86.671 Other chronic osteomyelitis, right ankle and foot ==

== ENCOUNTER → 2024-12-28 | Outpatient (REF) | payer BC | LOC: WCC 10:27 | PROVIDERS: ATTEND Nurse Practitioner Family | DX: L97.514 Non-pressure chronic ulcer of other part of right foot with necrosis of bone (principal); M86.671 Other chronic osteomyelitis, right ankle and foot ==

== ENCOUNTER → 2025-01-01 | Outpatient (REF) | payer BC | LOC: WCC 12:14 | PROVIDERS: ATTEND Nurse Practitioner Family | DX: L97.514 Non-pressure chronic ulcer of other part of right foot with necrosis of bone (principal); M86.671 Other chronic osteomyelitis, right ankle and foot ==

== ENCOUNTER → 2025-01-02 | Outpatient (REF) | payer BC | LOC: WCC 09:32 | PROVIDERS: ATTEND Nurse Practitioner Family | DX: L97.514 Non-pressure chronic ulcer of other part of right foot with necrosis of bone (principal); M86.671 Other chronic osteomyelitis, right ankle and foot ==